=== PATIENT | female | born 1975 | race Caucasian/White ===

== ENCOUNTER 2017-08-27 14:49 | Emergency (ER) | payer BC ==
[~2017-08-27] VITALS: Ht 162.6 cm; Wt 108.3 kg
[~2017-08-27 14:49] MED LIST: ADDERALL10 MG PO; ALPRAZOLAM1 MG PO; AZITHROMYCIN250 MG PO; BUTALB-APAP-CA1 EACH PO; CEFTIN500 MG PO; CELEXA40 MG PO; CIMETIDINE400 MG PO; CLARITIN10 M3; FLONASE16 G1 BOTH NARES; FLUTICASONE PRO16 GM BOTH NARES; FOCALIN XR15 M1 PO; FOCALIN XR20 MG PO; PEPCID20 MG PO; PREDNISONE10 MG PO; PREDNISONE20 MG PO; PREDNISONE50 MG PO; TRILEPTAL PO; TRILEPTAL300 MG; TRILEPTAL600 MG PO; VENTOLIN HFA18 GM IH; XANAX0.5 MG; ZOLOFT20 MG/ML PO; ZOLOFT50 M1
[2017-08-27] MEDS ORDERED: NORCO 5/3251 TABLET PO (15:21)
[2017-08-27] MEDS ORDERED: PEN-VEE K,VEET500 MG PO (15:21)
== END 2017-08-27 15:32 | disposition home or self-care (01) ==
LOC: EME 14:49
DX: K04.7 Periapical abscess without sinus (principal); K02.9 Dental caries, unspecified; S02.5XXA Fracture of tooth (traumatic), initial encounter for closed fracture; F17.200 Nicotine dependence, unspecified, uncomplicated; Z88.8 Allergy status to other drugs, medicaments and biological substances

== ENCOUNTER 2017-11-26 12:47 | Emergency (ER) | payer BC ==
[~2017-11-26] VITALS: Ht 162.6 cm; Wt 107.9 kg
[~2017-11-26 12:47] MED LIST changes: +NORCO 5/3251 TABLET PO; +PEN-VEE K,VEET500 MG PO
[2017-11-26] MEDS ORDERED: ULTRAM50 MG PO (13:59)
[2017-11-26] MEDS ORDERED: CLINDAMYCIN HC150 MG PO (13:59)
[2017-11-26 14:36] VITALS: BP 163/91
== END 2017-11-26 14:37 | disposition home or self-care (01) ==
LOC: EME 12:47
DX: K08.89 Other specified disorders of teeth and supporting structures (principal)
CPT/HCPCS: 99281; 99283